=== PATIENT | female | born 1970 | race African-American/Black ===

== ENCOUNTER 2019-06-23 02:51 | Emergency (ER) | payer MEDICAID, OTHER ==
[~2019-06-23] VITALS: Ht 167.6 cm; Wt 77.0 kg
[2019-06-23 04:19] VITALS: BP 114/78
[2019-06-23] MEDS ORDERED: ONDANSETRON 4MG ODT PO ONE (04:30)
[2019-06-23] MEDS ORDERED: MECLIZINE 25MG TABLET PO ONE (04:30)
== END 2019-06-23 06:29 | disposition home or self-care (01) ==
LOC: ER 04:21
DX: R42 Dizziness and giddiness (principal); H92.02 Otalgia, left ear; Z91.81 History of falling
CPT/HCPCS: 70450; 70486; 93005; 99284; J8597; Q0162